=== PATIENT | female | born 2000 | race American Indian/Alaskan Native ===

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

== ENCOUNTER 2020-08-07 04:41 | Emergency (ER) | payer MEDICAID, OTHER ==
[2020-08-07 05:19] VITALS: BP 105/83
[2020-08-07] MEDS ORDERED: SODIUM CHLORIDE 0.9% 1000 ML 1,000 ML IV ONE ×2 (05:29→07:04)
[2020-08-07] MEDS ORDERED: ONDANSETRON 4 MG/2 ML INJ IV ONE (05:29)
[2020-08-07 05:56] LABS: Basophils % (Auto) 0.4 % (0.0-1.8); Eosinophils # (Auto) 0.1 K/mm3 (0.0-0.4); Eosinophils % (Auto) 0.7 % (0.0-4.3); Hematocrit 38.3 % (30.3-42.9); Hemoglobin 12.9 gm/dl (10.1-14.3); Lymphocytes # (Auto) 1.4 K/mm3 (1.2-5.4); Lymphocytes % (Auto) 16.8 % (13.4-35.0); Mean Corpuscular HGB Conc 34 % (30-34); Mean Corpuscular Volume 89 fl (79-97); Monocytes # (Auto) 0.6 K/mm3 (0.0-0.8); Monocytes % (Auto) 7.2 % (0.0-7.3); Platelet Count 275 K/mm3 (140-440); Red Blood Count 4.31 M/mm3 (3.65-5.03)
[2020-08-07 06:13] LABS: Bacteria,Urine 1+ /HPF (Negative); Bilirubin,Urine SM (Negative); Blood,Urine NEG (Negative); Color,Urine Amber (Yellow); Mucus,Urine FEW /HPF; RBC,Urine < 1.0 /HPF (0.0-6.0)
[2020-08-07 06:50] LABS: Alanine Aminotransferase TNR units/L (7-56); BUN/Creatinine Ratio TNR; Blood Urea Nitrogen TNR mg/dL (7-17); Calcium TNR mg/dL (8.4-10.2)
[2020-08-07 06:51] LABS: Albumin TNR g/dL (3.9-5); Hemolysis Index TNR
[2020-08-07] MEDS ORDERED: METOCLOPRAMIDE 10 MG/2 ML INJ IV ONE (07:04)
[2020-08-07 07:22] LABS: Alanine Aminotransferase 12 units/L (7-56); Blood Urea Nitrogen 6 mg/dL (7-17); Calcium 8.7 mg/dL (8.4-10.2); Hemolysis Index 4
--- NOTE | 2020-08-07 07:28 | Emergency Department Report ---
ED Abdominal Pain HPI - General Chief Complaint: Abdominal Pain Stated Complaint: ABD PAIN/EMESIS/SOB Time Seen by Provider: 08/07/20 06:47 Source: patient Mode of arrival: Ambulatory Limitations: No Limitations - History of Present Illness Initial Comments: 20-year-old -[place] female presents to the emergency room for intermittent sharp lower abdominal pain for the last 2 days. Patient admits to nausea vomiting. She has had one loose stool. She reports that she has shortness of breath and just does not feel good. Patient denies any chest pain no dysuria. She has no past medical history currently takes no medications on a daily basis and has no known drug allergies. Patient reports that she is currently on Depo. MD Complaint: abdominal pain Onset/Timin -: days(s) Location: suprapubic Severity scale (0 -10): 7 Quality: aching Consistency: intermittent Improves With: nothing Worsens With: nothing Associated Symptoms: nausea, vomiting, diarrhea (X1). denies: fever, constipa tion, dysuria, hematemesis - Related Data LMP (females 10-50): unknown (On Depo) Home Medications Medication Instructions Recorded Confirmed Last Taken Labetalol 100 mg PO BID 02/08/17 02/08/17 02/07/17 21:00 Previous Rx's Medication Instructions Recorded Last Taken Type Pimecrolimus [Elidel] 1 applic TP BID #30 gm 09/20/14 Unknown Rx Jane Root [Jane] 250 mg PO QID PRN #40 capsule 08/07/20 Unknown Rx Gummies 1 tab PO QDAY #90 08/07/20 Unknown Rx Pyridoxine [Vitamin B-6 50MG TAB] 50 mg PO DAILY #30 tab 08/07/20 Unknown Rx Allergies Allergy/AdvReac Type Severity Reaction Status Date / Time No Known Allergies Allergy Verified 02/08/17 17:02 ED Review of Systems ROS: Stated complaint: ABD PAIN/EMESIS/SOB Other details as noted in HPI Comment: All other systems reviewed and negative ED Past Medical Hx - Past Medical History Previous Medical History?: Yes Hx Hypertension: Yes (PIH) Hx Congestive Heart Failure: No Hx Diabetes: No Hx Deep Vein Thrombosis: No Hx Renal Disease: No Hx Sickle Cell Disease: No Hx Seizures: No Hx Asthma: No Hx COPD: No Hx HIV: No Additional medical history: Eczema - Surgical History Past Surgical History?: No - Social History Smoking Status: Never Smoker Substance Use Type: None - Medications Home Medications: Home Medications Medication Instructions Recorded Confirmed Last Taken Type Pimecrolimus [Elidel] 1 applic TP BID #30 gm 09/20/14 02/08/17 Unknown Rx Labetalol 100 mg PO BID 02/08/17 02/08/17 02/07/17 21:00 History Jane Root [Jane] 250 mg PO QID PRN #40 capsule 08/07/20 Unknown Rx Gummies 1 tab PO QDAY #90 08/07/20 Unknown Rx Pyridoxine [Vitamin B-6 50MG TAB] 50 mg PO DAILY #30 tab 08/07/20 Unknown Rx ED Physical Exam - General Limitations: No Limitations General appearance: alert, in no apparent distress - Head Head exam: Present: atraumatic, normocephalic - Eye Eye exam: Present: normal appearance - ENT ENT exam: Present: normal external ear exam - Neck Neck exam: Present: normal inspection, full ROM - Respiratory Respiratory exam: Absent: accessory muscle use - Cardiovascular Cardiovascular Exam: Present: regular rate - Neurological Exam Neurological exam: Present: alert, oriented X3 - Psychiatric Psychiatric exam: Present: normal affect, normal mood ED Course Vital Signs 08/07/20 05:16 Temperature 98.0 F Pulse Rate 86 Respiratory 16 Rate Blood Pressure 105/83 O2 Sat by Pulse 96 Oximetry ED Medical Decision Making - Lab Data Result diagrams: 08/07/20 05:34 08/07/20 Unknown - Radiology Data Radiology results: [place] [address] Ultrasound Report Signed Patient: YOLANDA EID MR#: [id number] : 2000 Acct:[id number] Age/Sex: 20 / F A DM Date: 08/07/20 Loc: ED Attending Dr: Ordering Physician: YEYO MESSER Date of Service: 08/07/20 Procedure(s): US OB <= 14 weeks fetus Accession Number(s): [id number] cc: YEYO MESSER ULTRASOUND OBSTETRIC INDICATION: Positive with pelvic pain. TECHNIQUE: Transabdominal. COMPARISON: None available. FINDINGS: GESTATIONAL SAC: Well-defined oval shape and intrauterine in location. YOLK SAC: No significant abnormality. EMBRYO/FETUS: No significant abnormality. - [place]-Rump Length = 0.27 cm = 5 weeks, 6 day(s). - Heart Rate = 118 beats per minute. ADNEXA: No significant abnormality. FREE FLUID: None. ADDITIONAL FINDINGS: None. IMPRESSION: 1. Single, living intrauterine with estimated sonographic age of 5 weeks, 6 day(s). Signer Name: Pito Roach MD Signed: 08/07/2020 9:43 AM Workstation Name: [id number] Transcribed By: [place] Dictated By: Pito Roach MD Electronically Authenticated By: Pito Roach MD Signed Date/Time: 08/07/20942 DD/ 1 TD/TT: Print Cancel - Medical Decision Making 20-year-old -[place] female presents to the emergency room for intermittent sharp lower abdominal pain for the last 2 days. Patient admits to nausea vomiting. She has had one loose stool. She reports that she has shortness of breath and just does not feel good. Patient denies any chest pain no dysuria. She has no past medical history currently takes no medications on a daily basis and has no known drug allergies. Patient reports that she is currently on Depo. Urine test came back positive. Will order hCG quantitative as well as an ultrasound less than 14 weeks with transvaginal to rule out ectopic as patient has pelvic pain. Critical care attestation.: If time is entered above; I have spent that time in minutes in the direct care of this critically ill patient, excluding procedure time. ED Disposition Clinical Impression: Positive test Abdominal pain Qualifiers: Abdominal location: lower abdomen, unspecified Qualified Code(s): R10.30 - Lower abdominal pain, unspecified Qualifiers: Weeks of gestation: less than 8 weeks Qualified Code(s): Z3A.01 - Less than 8 weeks gestation of Disposition: -01 TO HOME OR SELFCARE Is pt being admited?: No Does the pt Need Aspirin: No Condition: Stable Instructions: Abdominal Pain (ED) Additional Instructions: Ultrasound shows you are 5 weeks and 1 day . Recommended you follow-up with your WEATHERIZATION FIELD TECHNICIAN. Take your vitamins. Jane root and B6 are for nausea. Increase your fluid intake advance your diet as tolerated. Prescriptions: Jane Root [Jane] 250 mg PO QID PRN #40 capsule PRN Reason: Nausea And Vomiting Gummies 1 tab PO QDAY #90 Pyridoxine [Vitamin B-6 50MG TAB] 50 mg PO DAILY #30 tab Referrals: PRIMARY CARE, [Primary Care Provider] - 3-5 Days [facility] [Provider Group] - 3-5 Days [facility] [Provider Group] - 3-5 Days [facility] [Provider Group] - 3-5 Days Forms: Work/School Release Form(ED)
[2020-08-07 07:33] LABS: HCG Qualitative,Urine Positive (Negative)
[2020-08-07 07:39] LABS: BUN/Creatinine Ratio 10
--- NOTE | 2020-08-07 09:47 | Ultrasound Report ---
ULTRASOUND OBSTETRIC INDICATION: Positive with pelvic pain. TECHNIQUE: Transabdominal. COMPARISON: None available. FINDINGS: GESTATIONAL SAC: Well-defined oval shape and intrauterine in location. YOLK SAC: No significant abnormality. EMBRYO/FETUS: No significant abnormality. - [place]-Rump Length = 0.27 cm = 5 weeks, 6 day(s). - Heart Rate = 118 beats per minute. ADNEXA: No significant abnormality. FREE FLUID: None. ADDITIONAL FINDINGS: None. IMPRESSION: 1. Single, living intrauterine with estimated sonographic age of 5 weeks, 6 day(s). Signer Name: Pito Roach MD Signed: 08/07/2020 9:43 AM Workstation Name: [id number]
== END 2020-08-07 10:35 | disposition home or self-care (01) ==
LOC: ED 04:41
DX: O26.891 Other specified pregnancy related conditions, first trimester (principal); R10.2 Pelvic and perineal pain; I10 Essential (primary) hypertension; Z3A.01 Less than 8 weeks gestation of pregnancy; Z79.899 Other long term (current) drug therapy
CPT/HCPCS: 36415; 76801; 80053; 81001; 81025; 83690; 84702; 85025; 96361; 96374; 96375; 99284; J2405; J2765; J7030

== ENCOUNTER 2020-08-07 22:05 | Emergency (ER) | payer OTHER ==
--- NOTE | 2020-08-08 00:04 | Emergency Department Report ---
ED N/V/D HPI - General Chief complaint: Nausea/Vomiting/Diarrhea Stated complaint: 5WKS ;VOMITING BLOOD Time Seen by Provider: 08/07/20 23:54 Source: patient Mode of arrival: Ambulatory Limitations: No Limitations - History of Present Illness Initial comments: 20-year-old female, , currently 5 weeks , presents to ED with nausea and vomiting, lower abdominal pain. Patient was seen on yesterday for same complaint. Ultrasound was done which showed that patient was with a viable 5-week intrauterine . Patient was given prescriptions for gingerroot and B6 for nausea, which she had filled. Patient states this is not helping with her nausea and vomiting. Patient reports some blood-streaked emesis. MD complaint: nausea, vomiting, abdominal pain -: days(s) (2) Description of Vomiting: blood-streaked Associated Abdominal Pain: Yes (suprapubic) Severity: moderate Quality: cramping Consistency: constant Improves with: none Worsens with: none Associated Symptoms: nausea/vomiting. denies: fever/chills - Related Data Home Medications Medication Instructions Recorded Confirmed Last Taken Labetalol 100 mg PO BID 02/08/17 02/08/17 02/07/17 21:00 Previous Rx's Medication Instructions Recorded Last Taken Type Pimecrolimus [Elidel] 1 applic TP BID #30 gm 09/20/14 Unknown Rx Jane Root [Jane] 250 mg PO QID PRN #40 capsule 08/07/20 Unknown Rx Gummies 1 tab PO QDAY #90 08/07/20 Unknown Rx Pyridoxine [Vitamin B-6 50MG TAB] 50 mg PO DAILY #30 tab 08/07/20 Unknown Rx Promethazine [Phenergan TAB] 25 mg PO Q6HR PRN #20 tab 08/08/20 Unknown Rx Allergies Allergy/AdvReac Type Severity Reaction Status Date / Time No Known Allergies Allergy Verified 02/08/17 17:02 ED Review of Systems ROS: Stated complaint: 5WKS ;VOMITING BLOOD Other details as noted in HPI Comment: All other systems reviewed and negative Constitutional: denies: chills, fever Gastrointestinal: abdominal pain, nausea, vomiting. denies: diarrhea Genitourinary: other (Denies vaginal bleeding) ED Past Medical Hx - Past Medical History Previous Medical History?: Yes Hx Hypertension: Yes (PIH) Hx Congestive Heart Failure: No Hx Diabetes: No Hx Deep Vein Thrombosis: No Hx Renal Disease: No Hx Sickle Cell Disease: No Hx Seizures: No Hx Asthma: No Hx COPD: No Hx HIV: No Additional medical history: Eczema - Surgical History Past Surgical History?: No - Social History Smoking Status: Never Smoker Substance Use Type: None - Medications Home Medications: Home Medications Medication Instructions Recorded Confirmed Last Taken Type Pimecrolimus [Elidel] 1 applic TP BID #30 gm 09/20/14 02/08/17 Unknown Rx Labetalol 100 mg PO BID 02/08/17 02/08/17 02/07/17 21:00 History Jane Root [Jane] 250 mg PO QID PRN #40 capsule 08/07/20 Unknown Rx Gummies 1 tab PO QDAY #90 08/07/20 Unknown Rx Pyridoxine [Vitamin B-6 50MG TAB] 50 mg PO DAILY #30 tab 08/07/20 Unknown Rx Promethazine [Phenergan TAB] 25 mg PO Q6HR PRN #20 tab 08/08/20 Unknown Rx ED Physical Exam - General Limitations: No Limitations General appearance: alert, in no apparent distress - Head Head exam: Present: atraumatic, normocephalic - Eye Eye exam: Present: normal appearance, EOMI - ENT ENT exam: Present: mucous membranes moist - Neck Neck exam: Present: normal inspection - Respiratory Respiratory exam: Present: normal lung sounds bilaterally. Absent: respiratory distress - Cardiovascular Cardiovascular Exam: Present: regular rate, normal rhythm - GI/Abdominal GI/Abdominal exam: Present: soft, tenderness (Mild suprapubic). Absent: distended - Neurological Exam Neurological exam: Present: alert, oriented X3 - Psychiatric Psychiatric exam: Present: normal affect, normal mood - Skin Skin exam: Present: warm, dry, intact, normal color ED Course Vital Signs 08/07/20 08/08/20 23:16 02:52 Temperature 99.0 F 98.8 F Pulse Rate 88 88 Respiratory 18 16 Rate Blood Pressure 107/54 Blood Pressure 112/63 [Right] O2 Sat by Pulse 99 98 Oximetry - Reevaluation(s) Reevaluation #1: 08/08/20 02:31 P.o. challenge completed. ED Medical Decision Making - Lab Data Result diagrams: 08/08/20 00:27 08/08/20 00:27 - Medical Decision Making 20-year-old female, , currently 5 weeks , presents to ED with nausea and vomiting, lower abdominal pain. Patient was seen on yesterday for same complaint. Ultrasound was done which showed that patient was with a viable 5-week intrauterine . Patient returns tonight with same vomiting and abdominal pain. Labs were rechecked and shows some mild hypokalemia. Remainder of labs are unremarkable. Vital signs are normal and stable. Patient given IV fluids, Zofran and potassium replacement. No further emesis here in the ED. P.o. challenge completed. Patient will be discharged with prescription for Phenergan. Outpatient follow-up advised, return precautions given. - Differential Diagnosis Nausea vomiting in , electrolyte abnormality, dehydration Critical care attestation.: If time is entered above; I have spent that time in minutes in the direct care of this critically ill patient, excluding procedure time. ED Disposition Clinical Impression: Nausea and vomiting in , Hypokalemia Disposition: TO HOME OR SELFCARE Is pt being admited?: No Condition: Stable Instructions: Hypokalemia, Morning Sickness, [id number] Prescriptions: Promethazine [Phenergan TAB] 25 mg PO Q6HR PRN #20 tab PRN Reason: Nausea Referrals: [facility] MD ANGELA [Primary Care Provider] - 3-5 Days TREVA CABELLO MD [Staff Physician] - 3-5 Days Time of Disposition: 02:32
[2020-08-08] MEDS ORDERED: SODIUM CHLORIDE 0.9% 1000 ML 1,000 ML IV ONE (00:06)
[2020-08-08] MEDS ORDERED: ONDANSETRON 4 MG/2 ML INJ IV ONE (00:06)
[2020-08-08 00:43] LABS: Basophils % (Auto) 0.3 % (0.0-1.8); Eosinophils % (Auto) 0.1 % (0.0-4.3); Hematocrit 34.9 % (30.3-42.9); Hemoglobin 11.7 gm/dl (10.1-14.3); Lymphocytes # (Auto) 1.1 K/mm3 (1.2-5.4); Lymphocytes % (Auto) 11.2 % (13.4-35.0); Mean Corpuscular HGB Conc 34 % (30-34); Mean Corpuscular Volume 89 fl (79-97); Monocytes # (Auto) 0.6 K/mm3 (0.0-0.8); Monocytes % (Auto) 6.3 % (0.0-7.3); Platelet Count 246 K/mm3 (140-440); Red Blood Count 3.91 M/mm3 (3.65-5.03); Red Cell Distribution Width 13.8 % (13.2-15.2)
[2020-08-08 01:02] LABS: Blood Urea Nitrogen 6 mg/dL (7-17); Calcium 8.6 mg/dL (8.4-10.2); Hemolysis Index 3
[2020-08-08 01:03] LABS: BUN/Creatinine Ratio 10
[2020-08-08] MEDS ORDERED: POTASSIUM CHLORIDE ER 20 MEQ TAB PO ONE (01:49)
[2020-08-08 02:56] VITALS: BP 112/63
== END 2020-08-08 02:52 | disposition home or self-care (01) ==
LOC: ED 22:05
DX: O21.8 Other vomiting complicating pregnancy (principal); O26.891 Other specified pregnancy related conditions, first trimester; E87.6 Hypokalemia; I10 Essential (primary) hypertension; Z3A.01 Less than 8 weeks gestation of pregnancy; Z79.899 Other long term (current) drug therapy
CPT/HCPCS: 36415; 80048; 85025; 96361; 96374; 99283; J2405; J7030; 76801; 80053; 81001; 81025; 83690; 84702; 96375; J2765

== ENCOUNTER 2020-08-31 16:21 | Observation (INO) | payer OTHER ==
[2020-08-31 20:11] LABS: Alanine Aminotransferase 25 units/L (7-56); Albumin 4.3 g/dL (3.9-5); Blood Urea Nitrogen 6 mg/dL (7-17); Calcium 9.6 mg/dL (8.4-10.2); Hemolysis Index 0
[2020-08-31] MEDS: ONDANSETRON 4 MG/2 ML INJ IV PRN (20:15)
[2020-08-31] MEDS: LACTATED RINGERS 1,000 ML IV SCH (20:16)
[2020-08-31 20:18] LABS: Basophils % (Auto) 0.2 % (0.0-1.8); Eosinophils % (Auto) 0.5 % (0.0-4.3); Hematocrit 35.9 % (30.3-42.9); Hemoglobin 12.2 gm/dl (10.1-14.3); Lymphocytes # (Auto) 1.8 K/mm3 (1.2-5.4); Lymphocytes % (Auto) 25.3 % (13.4-35.0); Mean Corpuscular HGB Conc 34 % (30-34); Mean Corpuscular Volume 88 fl (79-97); Monocytes # (Auto) 0.6 K/mm3 (0.0-0.8); Monocytes % (Auto) 8.2 % (0.0-7.3); Platelet Count 303 K/mm3 (140-440); Red Blood Count 4.06 M/mm3 (3.65-5.03); Red Cell Distribution Width 13.1 % (13.2-15.2)
[2020-08-31 20:30] LABS: BUN/Creatinine Ratio 12
--- NOTE | 2020-08-31 22:24 | Ultrasound Report ---
ULTRASOUND OBSTETRIC INDICATION / CLINICAL INFORMATION: gestational age; hyperemesis grav. Clinical Gestational Age (GA): 9.5 weeks.days TECHNIQUE: Transabdominal. COMPARISON: 08/07/2020 FINDINGS: GESTATIONAL SAC: Well-defined oval shape and intrauterine in location. YOLK SAC: No significant abnormality. EMBRYO/FETUS: No significant abnormality. - [place]-Rump Length = 2.0 cm = 8.4 weeks.days - Heart Rate, beats per minute (if present) = 174 ADNEXA: Ovaryies are not well visualized No significant abnormality. FREE FLUID: None. ADDITIONAL FINDINGS: Small subchorionic hematoma appears smaller when compared to the prior examinati on. IMPRESSION: 1. Single, living intrauterine with estimated sonographic age of 8.4 weeks.days. Signer Name: Sherif Cao MD Signed: 08/31/2020 10:19 PM Workstation Name: [id number]
--- NOTE | 2020-08-31 22:26 | History and Physical Report ---
History of Present Illness Date of examination: 08/31/20 Date of admission: 08/31/20 17:20 Chief complaint: sent from clinic for hyperemesis History of present illness: at 8wks 5days by LMP c/w first trimester u/s at 5.6wks done on 08/07/20. care at [facility]. pt seen by REJI Villegas and sent to the hospital for admission. Covering physician Dr. Lopez states he was unaware. Dr. Garza was not called. Pt gave history of having nausea and vomiting and spitting up blood x3wks. pt denies pelvic pain or vaginal bleeding. pt states she can only eat turkey sandwich. Denies fever or chills. Past History Past Medical History: no pertinent history, other Past Surgical History: no surgical history Family/Genetic History: none Social history: no significant social history - Obstetrical History Expected Date of Delivery: 04/07/21 Actual Gestation: 8 Week(s) 5 Day(s) : 2 Hx # Term Pregnancies: 1 Number of Living Children: 1 Medications and Allergies Allergies Allergy/AdvReac Type Severity Reaction Status Date / Time No Known Allergies Allergy Verified 02/08/17 17:02 Home Medications Medication Instructions Recorded Confirmed Last Taken Type Pimecrolimus [Elidel] 1 applic TP BID #30 gm 09/20/14 02/08/17 Unknown Rx Labetalol 100 mg PO BID 02/08/17 02/08/17 02/07/17 21:00 History Jane Root [Jane] 250 mg PO QID PRN #40 capsule 08/07/20 Unknown Rx Gummies 1 tab PO QDAY #90 08/07/20 Unknown Rx Pyridoxine [Vitamin B-6 50MG TAB] 50 mg PO DAILY #30 tab 08/07/20 Unknown Rx Promethazine [Phenergan TAB] 25 mg PO Q6HR PRN #20 tab 08/08/20 Unknown Rx Active Meds: Active Medications Lactated Ringer's (Lactated Ringers) 1,000 mls @ 125 mls/hr IV DIRECT JAYCE Last Admin: 08/31/20 20:16 Dose: 125 mls/hr Documented by: Ondansetron HCl (Ondansetron 4 Mg/2 Ml Inj) 4 mg IV Q4H PRN PRN Reason: Nausea And Vomiting Last Admin: 08/31/20 20:15 Dose: 4 mg Documented by: Review of Systems All systems: negative (persistent nausea, vomiting and spitting up blood) - Vital Signs Vital signs: Vital Signs Temp Pulse Resp BP Pulse Ox 98.3 F 72 18 120/61 100 08/31/20 17:45 08/31/20 17:45 08/31/20 17:45 08/31/20 17:45 08/31/20 17:45 Temp Pulse Resp BP Pulse Ox 98.3 F 72 18 120/61 100 08/31/20 17:45 08/31/20 17:45 08/31/20 17:45 08/31/20 17:45 08/31/20 17:45 - Physical Exam Breasts: Positive: deferred Cardiovascular: Regular rate Lungs: Positive: Normal air movement Abdomen: Positive: normal appearance, soft Genitourinary (Female): Positive: other (deferred) Uterus: Positive: normal size Extremities: Positive: normal Results Result Diagrams: 08/31/20 19:15 08/31/20 19:15 Abnormal lab results 08/31/20 08/31/20 Range/Units 19:15 19:15 RDW 13.1 L (13.2-15.2) % [place] % (Auto) 8.2 H (0.0-7.3) % Sodium 136 L (137-145) mmol/L Chloride 97.6 L (98-107) mmol/L BUN 6 L (7-17) mg/dL Creatinine 0.5 L (0.6-1.2) mg/dL Glucose 59 L (65-100) mg/dL All other labs normal. Assessment and Plan Hyperemesis gravidarum with normal electrolytes, dehydration without voiding for the past 5hrs 1. Admit to antepartum/mother baby floor 2. Give IV hydration and IV zofran and add multivitamins daily in the am 3. U/S for viability and dates 4. Consult [facility] in the morning if pt vomiting not relieved 5. Obtain records from clinic and labs HIV, RPR, hepBsAg, type and screen done 6. Emotional support given All questions encouraged and answered
[2020-08-31] MEDS: PANTOPRAZOLE 40 MG INJ IV SCH (23:34)
[2020-08-31] MEDS ORDERED: THIAMINE 100 MG, FOLIC ACID 1 MG, MULTIPLE VITAMIN INJ, ADULT 10 ML in SODIUM CHLORIDE ... IV ONE (23:45)
[2020-09-01 00:53] LABS: Bilirubin,Urine NEG (Negative); Blood,Urine NEG (Negative); Color,Urine Yellow (Yellow); Mucus,Urine 3+ /HPF
[2020-09-01 00:57] LABS: Amphetamine Screen,Urine PRESUMPTIVE NEGATIVE; Benzodiazepines Screen,Urine PRESUMPTIVE NEGATIVE; Cannabinoid Screen,Urine PRESUMPTIVE POSITIVE; Cocaine Screen,Urine PRESUMPTIVE NEGATIVE; Methadone Screen,Urine PRESUMPTIVE NEGATIVE; Opiate Screen,Urine PRESUMPTIVE NEGATIVE
[2020-09-01] MEDS: LACTATED RINGERS 1,000 ML IV SCH ×2 (06:49→23:05)
[2020-09-01] MEDS: ONDANSETRON 4 MG/2 ML INJ IV PRN ×2 (11:45→17:04)
[2020-09-01] MEDS: PANTOPRAZOLE 40 MG INJ IV SCH (11:48)
[2020-09-01 18:04] LABS: Bilirubin,Urine NEG (Negative); Blood,Urine NEG (Negative); Color,Urine Straw (Yellow); Protein,Urine <15 mg/dL mg/dL (Negative); RBC,Urine < 1.0 /HPF (0.0-6.0); Urobilinogen,Urine < 2.0 mg/dL (<2.0)
--- NOTE | 2020-09-01 18:45 | Progress Note ---
Assessment and Plan - Patient Problems (1) Hyperemesis gravidarum Current Visit: Yes Status: Acute Plan to address problem: Improved on IV zofran. Now tolerating clear liquids and chicken noodle soup. --Advance diet --Discharge pending improvement of N/V Subjective - Subjective Date of service: 09/01/20 Principal diagnosis: hyperemesis Interval history: Patient reports that the N/V has significantly improved over today. Reports tolerating clear liquids and chicken noodle soup. Wants to attempt to eat real meal prior to possibly going home. Otherwise well. Objective - Vital Signs Vital Signs: Vital Signs - 12hr 09/01/20 09/01/20 08:00 16:53 Temperature 98.7 F 98.0 F Pulse Rate 76 82 Respiratory 18 18 Rate Blood Pressure 102/41 97/64 [Right] O2 Sat by Pulse 100 99 Oximetry - Exam Abdomen: Present: normal appearance, normal bowel sounds - Labs Labs: Abnormal Labs 08/31/20 08/31/20 09/01/20 19:15 19:15 00:17 RDW 13.1 L Bent % (Auto) 8.2 H Sodium 136 L Chloride 97.6 L BUN 6 L Creatinine 0.5 L Glucose 59 L Urine pH 8.0 H 09/01/20 17:26 RDW Bent % (Auto) Sodium Chloride BUN Creatinine Glucose Urine pH 9.0 H Laboratory Results - last 24 hr 08/31/20 08/31/20 08/31/20 19:15 19:15 19:15 WBC 7.2 RBC 4.06 Hgb 12.2 Hct 35.9 MCV 88 MCH 30 MCHC 34 RDW 13.1 L Plt Count 303 Lymph % (Auto) 25.3 Bent % (Auto) 8.2 H Eos % (Auto) 0.5 Baso % (Auto) 0.2 Lymph # (Auto) 1.8 Bent # (Auto) 0.6 Eos # (Auto) 0.0 Baso # (Auto) 0.0 Seg Neutrophils % 65.8 Seg Neutrophils # 4.7 Sodium 136 L Potassium 3.8 Chloride 97.6 L Carbon Dioxide 27 Anion Gap 15 BUN 6 L Creatinine 0.5 L Estimated GFR > 60 BUN/Creatinine Ratio 12 Glucose 59 L Hemoglobin A1c Calcium 9.6 Total Bilirubin < 0.20 AST 19 ALT 25 Alkaline Phosphatase 79 Total Protein 7.7 Albumin 4.3 Albumin/Globulin Ratio 1.3 Amylase 101 Lipase 13 Urine Color Urine Turbidity Urine pH Ur Specific [place] Urine Protein Urine Glucose (UA) Urine Ketones Urine Blood Urine Nitrite Urine Bilirubin Urine Urobilinogen Ur Leukocyte Esterase Urine WBC (Auto) Urine RBC (Auto) U Epithel Cells (Auto) Urine Mucus Urine Opiates Screen Urine Methadone Screen Ur Barbiturates Screen Ur Phencyclidine Scrn Ur Amphetamines Screen U Benzodiazepines Scrn Urine Cocaine Screen U Marijuana (THC) Screen Drugs of Abuse Note Coronavirus (PCR) Hep Bs Antigen HIV 1&2 Antibody Rapid HIV P24 Antigen Rubella IgG Antibody Blood Type 08/31/20 08/31/20 08/31/20 19:15 19:15 19:15 WBC RBC Hgb Hct MCV MCH MCHC RDW Plt Count Lymph % (Auto) Bent % (Auto) Eos % (Auto) Baso % (Auto) Lymph # (Auto) Bent # (Auto) Eos # (Auto) Baso # (Auto) Seg Neutrophils % Seg Neutrophils # Sodium Potassium Chloride Carbon Dioxide Anion Gap BUN Creatinine Estimated GFR BUN/Creatinine Ratio Glucose Hemoglobin A1c 5.5 Calcium Total Bilirubin AST ALT Alkaline Phosphatase Total Protein Albumin Albumin/Globulin Ratio Amylase Lipase Urine Color Urine Turbidity Urine pH Ur Specific [place] Urine Protein Urine Glucose (UA) Urine Ketones Urine Blood Urine Nitrite Urine Bilirubin Urine Urobilinogen Ur Leukocyte Esterase Urine WBC (Auto) Urine RBC (Auto) U Epithel Cells (Auto) Urine Mucus Urine Opiates Screen Urine Methadone Screen Ur Barbiturates Screen Ur Phencyclidine Scrn Ur Amphetamines Screen U Benzodiazepines Scrn Urine Cocaine Screen U Marijuana (THC) Screen Drugs of Abuse Note Coronavirus (PCR) Hep Bs Antigen HIV 1&2 Antibody Rapid HIV P24 Antigen Rubella IgG Antibody Immune Blood Type B POSITIVE 08/31/20 08/31/20 09/01/20 19:15 19:15 00:17 WBC RBC Hgb Hct MCV MCH MCHC RDW Plt Count Lymph % (Auto) Bent % (Auto) Eos % (Auto) Baso % (Auto) Lymph # (Auto) Bent # (Auto) Eos # (Auto) Baso # (Auto) Seg Neutrophils % Seg Neutrophils # Sodium Potassium Chloride Carbon Dioxide Anion Gap BUN Creatinine Estimated GFR BUN/Creatinine Ratio Glucose Hemoglobin A1c Calcium Total Bilirubin AST ALT Alkaline Phosphatase Total Protein Albumin Albumin/Globulin Ratio Amylase Lipase Urine Color Yellow Urine Turbidity Cloudy Urine pH 8.0 H Ur Specific [place] 1.024 Urine Protein 30 mg/dl Urine Glucose (UA) Neg Urine Ketones 80 Urine Blood Neg Urine Nitrite Neg Urine Bilirubin Neg Urine Urobilinogen 4.0 Ur Leukocyte Esterase Neg Urine WBC (Auto) 0.0 Urine RBC (Auto) 17.0 U Epithel Cells (Auto) 6.0 Urine Mucus 3+ Urine Opiates Screen Urine Methadone Screen Ur Barbiturates Screen Ur Phencyclidine Scrn Ur Amphetamines Screen U Benzodiazepines Scrn Urine Cocaine Screen U Marijuana (THC) Screen Drugs of Abuse Note Coronavirus (PCR) Hep Bs Antigen Non-reactive HIV 1&2 Antibody Rapid Non react HIV P24 Antigen Non react Rubella IgG Antibody Blood Type 09/01/20 09/01/20 09/01/20 00:17 17:26 Unknown WBC RBC Hgb Hct MCV MCH MCHC RDW Plt Count Lymph % (Auto) Bent % (Auto) Eos % (Auto) Baso % (Auto) Lymph # (Auto) Bent # (Auto) Eos # (Auto) Baso # (Auto) Seg Neutrophils % Seg Neutrophils # Sodium Potassium Chloride Carbon Dioxide Anion Gap BUN Creatinine Estimated GFR BUN/Creatinine Ratio Glucose Hemoglobin A1c Calcium Total Bilirubin AST ALT Alkaline Phosphatase Total Protein Albumin Albumin/Globulin Ratio Amylase Lipase Urine Color Straw Urine Turbidity Clear Urine pH 9.0 H Ur Specific [place] 1.005 Urine Protein <15 mg/dl Urine Glucose (UA) Neg Urine Ketones Neg Urine Blood Neg Urine Nitrite Neg Urine Bilirubin Neg Urine Urobilinogen < 2.0 Ur Leukocyte Esterase Tr Urine WBC (Auto) 1.0 Urine RBC (Auto) < 1.0 U Epithel Cells (Auto) 1.0 Urine Mucus Urine Opiates Screen Presumptive negative Urine Methadone Screen Presumptive negative Ur Barbiturates Screen Presumptive negative Ur Phencyclidine Scrn Presumptive negative Ur Amphetamines Screen Presumptive negative U Benzodiazepines Scrn Presumptive negative Urine Cocaine Screen Presumptive negative U Marijuana (THC) Screen Presumptive positive Drugs of Abuse Note Disclamer Coronavirus (PCR) Negative Hep Bs Antigen HIV 1&2 Antibody Rapid HIV P24 Antigen Rubella IgG Antibody Blood Type
[2020-09-01] MEDS ORDERED: CLOTRIMAZOLE 1% VAG CREAM 45 GM VG SCH (22:00)
[2020-09-02] MEDS: LACTATED RINGERS 1,000 ML IV SCH (05:53)
[2020-09-02] MEDS ORDERED: ONDANSETRON 4 MG ODT TAB PO PRN (10:00)
[2020-09-02] MEDS ORDERED: PYRIDOXINE 50 MG TAB PO SCH (10:00)
[2020-09-02] MEDS: PANTOPRAZOLE 40 MG INJ IV SCH (10:37)
--- NOTE | 2020-09-02 16:14 | Progress Note ---
Assessment and Plan - Patient Problems (1) Hyperemesis gravidarum Current Visit: Yes Status: Acute Plan to address problem: PT can be sent home today. Will send hoem with Zofran and Vit B6. HEG precautions d/w pt. RTO 1 week. Subjective - Subjective Date of service: 09/02/20 Principal diagnosis: hyperemesis Interval history: PT doing much better today. PT got IV zofran overnight and today tolerated PO Zofran and Vit B6 and was able to tolerated some po today. No emesis today. PT would like to go home. Objective - Vital Signs Vital Signs: Vital Signs - 12hr 09/02/20 09/02/20 07:53 12:19 Temperature 98.6 F 98.6 F Pulse Rate 76 76 Respiratory 18 18 Rate Blood Pressure 99/51 114/54 O2 Sat by Pulse 98 100 Oximetry - Labs Labs: Abnormal Labs 08/31/20 08/31/20 09/01/20 19:15 19:15 00:17 RDW 13.1 L [place] % (Auto) 8.2 H Sodium 136 L Chloride 97.6 L BUN 6 L Creatinine 0.5 L Glucose 59 L Urine pH 8.0 H 09/01/20 17:26 RDW [place] % (Auto) Sodium Chloride BUN Creatinine Glucose Urine pH 9.0 H Laboratory Results - last 24 hr 09/01/20 17:26 Urine Color Straw Urine Turbidity Clear Urine pH 9.0 H Ur Specific [place] 1.005 Urine Protein <15 mg/dl Urine Glucose (UA) Neg Urine Ketones Neg Urine Blood Neg Urine Nitrite Neg Urine Bilirubin Neg Urine Urobilinogen < 2.0 Ur Leukocyte Esterase Tr Urine WBC (Auto) 1.0 Urine RBC (Auto) < 1.0 U Epithel Cells (Auto) 1.0
--- NOTE | 2020-09-02 16:17 | Short Stay Summary ---
Short Stay Documentation Date of service: 09/02/20 Narrative H&P: see Progress notes. PT admitted for HEG. PT stabilized with Zofran PO and Vit B6 and she was sent home with those meds. RTO 1 week - History Social history: no significant social history - Allergies and Medications Current Medications: Allergies No Known Allergies Allergy (Verified 02/08/17 17:02) Home Medications Medication Instructions Recorded Confirmed Last Taken Type Pimecrolimus [Elidel] 1 applic TP BID #30 gm 09/20/14 02/08/17 Unknown Rx Labetalol 100 mg PO BID 02/08/17 02/08/17 02/07/17 21:00 History Jane Root [Jaen] 250 mg PO QID PRN #40 capsule 08/07/20 Unknown Rx Gummies 1 tab PO QDAY #90 08/07/20 Unknown Rx Pyridoxine [Vitamin B-6 50MG TAB] 50 mg PO DAILY #30 tab 08/07/20 Unknown Rx Promethazine [Phenergan TAB] 25 mg PO Q6HR PRN #20 tab 08/08/20 Unknown Rx Ondansetron [Zofran ODT TAB] 4 mg PO Q6H PRN #30 tab.rapdis 09/02/20 Unknown Rx Pyridoxine [Vitamin B-6 50MG TAB] 25 mg PO Q6H PRN #90 tablet 09/02/20 Unknown Rx Active Medications Clotrimazole (Clotrimazole 1% Vag Cream 45 Gm) 1 applic VG QHS [facility] Stop: 09/07/20 22:01 Last Admin: 09/02/20 00:21 Dose: 1 applic Documented by: Lactated Ringer's (Lactated Ringers) 1,000 mls @ 125 mls/hr IV DIRECT [facility] Last Admin: 09/02/20 05:53 Dose: 125 mls/hr Documented by: Ondansetron HCl (Ondansetron 4 Mg Odt Tab) 4 mg PO Q6H PRN PRN Reason: Nausea And Vomiting Pantoprazole Sodium (Pantoprazole 40 Mg Inj) 40 mg IV QDAY [facility] Last Admin: 09/02/20 10:37 Dose: 40 mg Documented by: Pyridoxine HCl (Pyridoxine 50 Mg Tab) 25 mg PO Q6H [facility] Last Admin: 09/02/20 10:38 Dose: 25 mg Documented by: - Physical exam Breasts: deferred - Discharge Diagnoses (1) Hyperemesis gravidarum Status: Acute Short Stay Discharge Plan Follow up with: ELOISE SILVA MD [Primary Care Provider] - 7 Days Prescriptions: Pyridoxine [Vitamin B-6 50MG TAB] 25 mg PO Q6H PRN #90 tablet PRN Reason: Nausea And Vomiting Ondansetron [Zofran ODT TAB] 4 mg PO Q6H PRN #30 tab.rapdis PRN Reason: Nausea And Vomiting
[2020-09-02 18:54] VITALS: BP 115/49
== END 2020-09-02 18:55 | disposition home or self-care (01) ==
LOC: UNDOADMOB 16:21 → INTOOBSV 16:21 → 3A 16:21 → OB 17:20
PROVIDERS: ADMIT Obstetrics & Gynecology; ATTEND Obstetrics & Gynecology
DX: O21.0 Mild hyperemesis gravidarum (principal); Z20.822 Contact with and (suspected) exposure to COVID-19; Z3A.01 Less than 8 weeks gestation of pregnancy; Z79.899 Other long term (current) drug therapy
CPT/HCPCS: 36415; 76801; 80053; 80307; 81001; 82150; 83036; 83690; 85025; 86706; 86762; 86900; 86901; 87806; 96365; 96366; 96375; 96376; C9113; G0378; G0379; J2405; J3411; J7030; J7120; U0003

== ENCOUNTER 2020-09-11 10:38 | Emergency (ER) | payer OTHER ==
[2020-09-11 11:14] VITALS: BP 118/63
[2020-09-11] MEDS ORDERED: METOCLOPRAMIDE 10 MG TAB PO ONE (11:47)
[2020-09-11] MEDS ORDERED: diphenhydrAMINE 25 MG CAP PO ONE (11:47)
[2020-09-11 12:21] LABS: Basophils % (Auto) 0.5 % (0.0-1.8); Eosinophils # (Auto) 0.1 K/mm3 (0.0-0.4); Eosinophils % (Auto) 0.7 % (0.0-4.3); Hematocrit 36.3 % (30.3-42.9); Hemoglobin 12.3 gm/dl (10.1-14.3); Lymphocytes # (Auto) 1.5 K/mm3 (1.2-5.4); Lymphocytes % (Auto) 21.3 % (13.4-35.0); Mean Corpuscular HGB Conc 34 % (30-34); Mean Corpuscular Volume 88 fl (79-97); Monocytes # (Auto) 0.5 K/mm3 (0.0-0.8); Monocytes % (Auto) 7.3 % (0.0-7.3); Platelet Count 319 K/mm3 (140-440); Red Blood Count 4.12 M/mm3 (3.65-5.03); Red Cell Distribution Width 13.3 % (13.2-15.2)
--- NOTE | 2020-09-11 12:45 | Emergency Department Report ---
ED General Adult HPI - General Chief complaint: Nausea/Vomiting/Diarrhea Stated complaint: VOMITING Time Seen by Provider: 09/11/20 11:23 Source: patient Mode of arrival: Ambulatory Limitations: No Limitations - History of Present Illness Initial comments: Patient is a 20-year-old female presents emergency room complaints of nausea and vomiting that has been throughout her . She states that it has worsened in the last 3 days. She states that the vomiting has been frequent. She states that she is taking Zofran prescribed by her TRANSPORTATION DRIVER with mild relief. She is able to keep down calos jazzy but states that she cannot keep down food. She states that she is approximately 11 weeks . She states her last menstrual cycle was in June. She denies any fever, diarrhea, abdominal pain, pelvic pain, vaginal bleeding, urinary symptoms, abnormal vaginal discharge. She states that her [facility]ATION DR[facility]. No past medical history. No allergies to medications. /P: 1/A: 0 - Related Data Home Medications Medication Instructions Recorded Confirmed Last Taken Labetalol 100 mg PO BID 02/08/17 02/08/17 02/07/17 21:00 Previous Rx's Medication Instructions Recorded Last Taken Type Pimecrolimus [Elidel] 1 applic TP BID #30 gm 09/20/14 Unknown Rx Gummies 1 tab PO QDAY #90 08/07/20 Unknown Rx Pyridoxine [Vitamin B-6 50MG TAB] 50 mg PO DAILY #30 tab 08/07/20 Unknown Rx Promethazine [Phenergan TAB] 25 mg PO Q6HR PRN #20 tab 08/08/20 Unknown Rx Ondansetron [Zofran ODT TAB] 4 mg PO Q6H PRN #30 tab.rapdis 09/02/20 Unknown Rx Pyridoxine [Vitamin B-6 50MG TAB] 25 mg PO Q6H PRN #90 tablet 09/02/20 Unknown Rx Calos Root [Calos] 250 mg PO QID PRN #40 capsule 09/11/20 Unknown Rx Metoclopramide [Reglan] 10 mg PO Q8HR PRN #20 tab 09/11/20 Unknown Rx diphenhydrAMINE [Benadryl CAP] 25 mg PO Q6HR PRN #20 capsule 09/11/20 Unknown Rx Allergies Allergy/AdvReac Type Severity Reaction Status Date / Time No Known Allergies Allergy Verified 02/08/17 17:02 ED Review of Systems ROS: Stated complaint: VOMITING Other details as noted in HPI Comment: All other systems reviewed and negative ED Past Medical Hx - Past Medical History Previous Medical History?: Yes Hx Hypertension: Yes (PIH) Hx Congestive Heart Failure: No Hx Diabetes: No Hx Deep Vein Thrombosis: No Hx Renal Disease: No Hx Sickle Cell Disease: No Hx Seizures: No Hx Asthma: No Hx COPD: No Hx HIV: No Additional medical history: Eczema - Surgical History Past Surgical History?: No - Social History Smoking Status: Never Smoker - Medications Home Medications: Home Medications Medication Instructions Recorded Confirmed Last Taken Type Pimecrolimus [Elidel] 1 applic TP BID #30 gm 09/20/14 02/08/17 Unknown Rx Labetalol 100 mg PO BID 02/08/17 02/08/17 02/07/17 21:00 History Gummies 1 tab PO QDAY #90 08/07/20 Unknown Rx Pyridoxine [Vitamin B-6 50MG TAB] 50 mg PO DAILY #30 tab 08/07/20 Unknown Rx Promethazine [Phenergan TAB] 25 mg PO Q6HR PRN #20 tab 08/08/20 Unknown Rx Ondansetron [Zofran ODT TAB] 4 mg PO Q6H PRN #30 tab.rapdis 09/02/20 Unknown Rx Pyridoxine [Vitamin B-6 50MG TAB] 25 mg PO Q6H PRN #90 tablet 09/02/20 Unknown Rx Calos Root [Calos] 250 mg PO QID PRN #40 capsule 09/11/20 Unknown Rx Metoclopramide [Reglan] 10 mg PO Q8HR PRN #20 tab 09/11/20 Unknown Rx diphenhydrAMINE [Benadryl CAP] 25 mg PO Q6HR PRN #20 capsule 09/11/20 Unknown Rx ED Physical Exam - General Limitations: No Limitations General appearance: alert, in no apparent distress - Head Head exam: Present: atraumatic, normocephalic - Eye Eye exam: Present: normal appearance - ENT ENT exam: Present: mucous membranes moist - Respiratory Respiratory exam: Present: normal lung sounds bilaterally. Absent: respiratory distress, wheezes, rales, rhonchi, stridor, chest wall tenderness, accessory muscle use, decreased breath sounds, prolonged expiratory - Cardiovascular Cardiovascular Exam: Present: regular rate, normal rhythm, normal heart sounds. Absent: systolic murmur, diastolic murmur, rubs, gallop - GI/Abdominal GI/Abdominal exam: Present: soft, normal bowel sounds. Absent: distended, tenderness, guarding, rebound, rigid - Neurological Exam Neurological exam: Present: alert, oriented X3 - Psychiatric Psychiatric exam: Present: normal affect, normal mood - Skin Skin exam: Present: warm, dry, intact ED Course Vital Signs 09/11/20 11:12 Temperature 98.8 F Pulse Rate 90 Respiratory 18 Rate Blood Pressure 118/63 [Right] O2 Sat by Pulse 98 Oximetry ED Medical Decision Making - Lab Data Result diagrams: 09/11/20 11:53 09/11/20 11:53 Lab Results 09/11/20 09/11/20 09/11/20 Range/Units 11:53 11:53 11:53 WBC 7.2 (4.5-11.0) K/mm3 RBC 4.12 (3.65-5.03) M/mm3 Hgb 12.3 (10.1-14.3) gm/dl Hct 36.3 (30.3-42.9) % MCV 88 (79-97) fl MCH 30 (28-32) pg MCHC 34 (30-34) % RDW 13.3 (13.2-15.2) % Plt Count 319 (140-440) K/mm3 Lymph % (Auto) 21.3 (13.4-35.0) % [place] % (Auto) 7.3 (0.0-7.3) % Eos % (Auto) 0.7 (0.0-4.3) % Baso % (Auto) 0.5 (0.0-1.8) % Lymph # (Auto) 1.5 (1.2-5.4) K/mm3 [place] # (Auto) 0.5 (0.0-0.8) K/mm3 Eos # (Auto) 0.1 (0.0-0.4) K/mm3 Baso # (Auto) 0.0 (0.0-0.1) K/mm3 Seg Neutrophils % 70.2 H (40.0-70.0) % Seg Neutrophils # 5.1 (1.8-7.7) K/mm3 Sodium 135 L (137-145) mmol/L Potassium 3.7 (3.6-5.0) mmol/L Chloride 97.4 L (98-107) mmol/L Carbon Dioxide 25 (22-30) mmol/L Anion Gap 16 mmol/L BUN 7 (7-17) mg/dL Creatinine 0.6 (0.6-1.2) mg/dL Estimated GFR > 60 ml/min BUN/Creatinine Ratio 12 % Glucose 89 (65-100) mg/dL Calcium 9.7 (8.4-10.2) mg/dL Total Bilirubin 0.20 (0.1-1.2) mg/dL AST 19 (5-40) units/L ALT 14 (7-56) units/L Alkaline Phosphatase 78 (35-129) units/L Total Protein 8.6 H (6.3-8.2) g/dL Albumin 4.2 (3.9-5) g/dL Albumin/Globulin Ratio 1.0 % HCG, Quant 49303 H (0-4) mIU/mL Urine Color (Yellow) Urine Turbidity (Clear) Urine pH (5.0-7.0) Ur Specific [place] (1.003-1.030) Urine Protein (Negative) mg/dL Urine Glucose (UA) (Negative) mg/dL Urine Ketones (Negative) mg/dL Urine Blood (Negative) Urine Nitrite (Negative) Urine Bilirubin (Negative) Urine Ictotest (Negative) Urine Urobilinogen (<2.0) mg/dL Ur Leukocyte Esterase (Negative) Urine WBC (Auto) (0.0-6.0) /HPF Urine RBC (Auto) (0.0-6.0) /HPF U Epithel Cells (Auto) (0-13.0) /HPF Urine Mucus /HPF 09/11/20 Range/Units 12:31 WBC (4.5-11.0) K/mm3 RBC (3.65-5.03) M/mm3 Hgb (10.1-14.3) gm/dl Hct (30.3-42.9) % MCV (79-97) fl MCH (28-32) pg MCHC (30-34) % RDW (13.2-15.2) % Plt Count (140-440) K/mm3 Lymph % (Auto) (13.4-35.0) % [place] % (Auto) (0.0-7.3) % Eos % (Auto) (0.0-4.3) % Baso % (Auto) (0.0-1.8) % Lymph # (Auto) (1.2-5.4) K/mm3 [place] # (Auto) (0.0-0.8) K/mm3 Eos # (Auto) (0.0-0.4) K/mm3 Baso # (Auto) (0.0-0.1) K/mm3 Seg Neutrophils % (40.0-70.0) % Seg Neutrophils # (1.8-7.7) K/mm3 Sodium (137-145) mmol/L Potassium (3.6-5.0) mmol/L Chloride (98-107) mmol/L Carbon Dioxide (22-30) mmol/L Anion Gap mmol/L BUN (7-17) mg/dL Creatinine (0.6-1.2) mg/dL Estimated GFR ml/min BUN/Creatinine Ratio % Glucose (65-100) mg/dL Calcium (8.4-10.2) mg/dL Total Bilirubin (0.1-1.2) mg/dL AST (5-40) units/L ALT (7-56) units/L Alkaline Phosphatase (35-129) units/L Total Protein (6.3-8.2) g/dL Albumin (3.9-5) g/dL Albumin/Globulin Ratio % HCG, Quant (0-4) mIU/mL Urine Color [place] (Yellow) Urine Turbidity Cloudy (Clear) Urine pH 5.0 (5.0-7.0) Ur Specific [place] 1.036 H (1.003-1.030) Urine Protein 100 mg/dl (Negative) mg/dL Urine Glucose (UA) Neg (Negative) mg/dL Urine Ketones Tr (Negative) mg/dL Urine Blood Neg (Negative) Urine Nitrite Neg (Negative) Urine Bilirubin Sm (Negative) Urine Ictotest Negative (Negative) Urine Urobilinogen 4.0 (<2.0) mg/dL Ur Leukocyte Esterase Tr (Negative) Urine WBC (Auto) 9.0 H (0.0-6.0) /HPF Urine RBC (Auto) 11.0 (0.0-6.0) /HPF U Epithel Cells (Auto) 38.0 H (0-13.0) /HPF Urine Mucus 3+ /HPF - Radiology Data Radiology results: report reviewed - Medical Decision Making Patient is a 20-year-old female presents emergency room complaints of nausea and vomiting that has been throughout her . She states that it has worsened in the last 3 days. She states that the vomiting has been frequent. She states that she is taking Zofran prescribed by her TRANSPORTATION DRIVER with mild relief. She is able to keep down calos jazzy but states that she cannot keep down food. She states that she is approximately 11 weeks . She states her last menstrual cycle was in June. She denies any fever, diarrhea, abdominal pain, pelvic pain, vaginal bleeding, urinary symptoms, abnormal vaginal discharge. She states that her TRANSPORTATION DRIVER is at [facility]. No past medical history. No allergies to medications. /P: 1/A: 0. Vitals are normal. No abnormality on physical exam is documented in chart. Labs are stable. UA shows evidence of many epithelial cells, likely due to contamination, patient is not having urinary symptoms, do not suspect UTI, will have patient follow-up with her TRANSPORTATION DRIVER for repeat urine sample. Patient given medications while in the emergency department. Patient was able to drink a bottle of water and a bottle of calos jazzy. She has no clinical signs of dehydration, no tachycardia, no hypotension, she has moist mucous membranes. Patient given prescription for gingerroot, Benadryl, Reglan. Advised patient Please take medication as prescribed. Increase your water intake. Eat a bland liquid diet until events or diet as tolerated. Follow-up with your TRANSPORTATION DRIVER. Return to emergency room for new or worsening symptoms friend Critical care attestation.: If time is entered above; I have spent that time in minutes in the direct care of this critically ill patient, excluding procedure time. ED Disposition Clinical Impression: Nausea/vomiting in Disposition: DC-01 TO HOME OR SELFCARE Is pt being admited?: No Does the pt Need Aspirin: No Condition: Stable Instructions: Hyperemesis Gravidarum Additional Instructions: Please take medication as prescribed. Increase your water intake. Eat a bland liquid diet until events or diet as tolerated. Follow-up with your TRANSPORTATION DRIVER. Return to emergency room for new or worsening symptoms friend Prescriptions: diphenhydrAMINE [Benadryl CAP] 25 mg PO Q6HR PRN #20 capsule PRN Reason: nausea and vomiting Calos Root [Calos] 250 mg PO QID PRN #40 capsule PRN Reason: Nausea And Vomiting Metoclopramide [Reglan] 10 mg PO Q8HR PRN #20 tab PRN Reason: nausea vomiting Referrals: [facility] [Provider Group] - 2-3 Days Time of Disposition: 14:07 Print Language: NEPALESE
[2020-09-11 13:29] LABS: Bilirubin,Urine SM (Negative); Blood,Urine NEG (Negative); Color,Urine Amber (Yellow); Mucus,Urine 3+ /HPF
[2020-09-11 13:44] LABS: Ictotest,Urine Negative (Negative)
[2020-09-11 13:50] LABS: Alanine Aminotransferase 14 units/L (7-56); Albumin 4.2 g/dL (3.9-5); Blood Urea Nitrogen 7 mg/dL (7-17); Calcium 9.7 mg/dL (8.4-10.2); Hemolysis Index 1
[2020-09-11 13:55] LABS: BUN/Creatinine Ratio 12
== END 2020-09-11 17:51 | disposition home or self-care (01) ==
LOC: ED 10:38
DX: O21.8 Other vomiting complicating pregnancy (principal); I10 Essential (primary) hypertension; Z3A.11 11 weeks gestation of pregnancy; Z79.899 Other long term (current) drug therapy
CPT/HCPCS: 36415; 80053; 81001; 84702; 85025; 87086

== ENCOUNTER 2021-01-21 21:24 | Outpatient (CLI) | payer OTHER ==
[2021-01-21 21:59] VITALS: BP 121/64
[2021-01-21] MEDS ORDERED: LACTATED RINGERS 1,000 ML IV ONE (22:24)
[2021-01-21 23:20] LABS: Bilirubin,Urine NEG (Negative); Blood,Urine LG (Negative); Color,Urine Yellow (Yellow); Mucus,Urine 1+ /HPF
[2021-01-21 23:22] LABS: RBC,Urine > 182.0 /HPF (0.0-6.0)
[2021-01-21 23:27] LABS: Amphetamine Screen,Urine PRESUMPTIVE NEGATIVE; Benzodiazepines Screen,Urine PRESUMPTIVE NEGATIVE; Cannabinoid Screen,Urine PRESUMPTIVE NEGATIVE; Cocaine Screen,Urine PRESUMPTIVE NEGATIVE; Methadone Screen,Urine PRESUMPTIVE NEGATIVE; Opiate Screen,Urine PRESUMPTIVE NEGATIVE
--- NOTE | 2021-01-22 04:13 | Ultrasound Report ---
ULTRASOUND BIOPHYSICAL PROFILE INDICATION / CLINICAL INFORMATION: well being. COMPARISON: None available. FINDINGS: BREATHING MOVEMENT = 2 GROSS BODY MOVEMENT = 2 TONE = 2 QUALITATIVE AMNIOTIC FLUID VOLUME = 2 TOTAL BIOPHYSICAL SCORE = 12/06 PRESENTATION: Cephalic. HEART RATE (beats per minute): 154 IMPRESSION: 1. Single live IUP in cephalic presentation. 2. biophysical profile = 12/06 Signer Name: Xavi Freeman MD Signed: 01/22/2021 4:09 AM Workstation Name: [id number]
--- NOTE | 2021-01-22 04:15 | Ultrasound Report ---
ULTRASOUND RENAL INDICATION / CLINICAL INFORMATION: hematuria and rule out kidney stones. COMPARISON: None available. FINDINGS: RIGHT KIDNEY: Size (in cm): 11.7 - Echogenicity: Normal. - Cortical Thickness: Normal. - Hydronephrosis: Minimal - Cyst or mass: Irregularly shaped fluid structure in the central left kidney likely reflects promine nt calyx. No cystic or solid mass identified. - Stones: None seen. LEFT KIDNEY: Size (in cm): 12.4 - Echogenicity: Normal. - Cortical Thickness: Normal. - Hydronephrosis: None. - Cyst or mass: No significant abnormality. - Stones: None seen. URINARY BLADDER: No significant abnormality. FREE FLUID: None. ADDITIONAL FINDINGS: None. IMPRESSION: 1. Minimal right hydronephrosis, of uncertain etiology. This may be related to maternal hydronephrosi s of . 2. Normal sonographic appearance of the left kidney. Signer Name: Xavi Freeman MD Signed: 01/22/2021 4:11 AM Workstation Name: [id number]
== END 2021-01-22 04:43 | disposition home or self-care (01) ==
LOC: TRG 21:24 → APU 21:27 → TRG 01-22 04:43
PROVIDERS: ATTEND Obstetrics & Gynecology
DX: O26.893 Other specified pregnancy related conditions, third trimester (principal); R10.9 Unspecified abdominal pain; R53.1 Weakness; H53.8 Other visual disturbances; R31.9 Hematuria, unspecified; Z3A.29 29 weeks gestation of pregnancy
CPT/HCPCS: 59025; 76770; 76819; 80307; 81001; 96360; J7120

== ENCOUNTER 2021-11-06 05:49 | Emergency (ER) | payer OTHER ==
[2021-11-06 08:31] LABS: Alanine Aminotransferase 23 units/L (7-56); Albumin 4.4 g/dL (3.9-5); Blood Urea Nitrogen 8 mg/dL (7-17); Calcium 9.5 mg/dL (8.4-10.2); Hemolysis Index 0
[2021-11-06 08:37] LABS: BUN/Creatinine Ratio 11
[2021-11-06 09:20] LABS: Basophils % (Auto) 0.4 % (0.0-1.8); Eosinophils # (Auto) 0.1 K/mm3 (0.0-0.4); Eosinophils % (Auto) 1.1 % (0.0-4.3); Hematocrit 35.5 % (30.3-42.9); Hemoglobin 11.8 gm/dl (10.1-14.3); Lymphocytes # (Auto) 2.2 K/mm3 (1.2-5.4); Lymphocytes % (Auto) 29.3 % (13.4-35.0); Mean Corpuscular HGB Conc 33 % (30-34); Mean Corpuscular Volume 77 fl (79-97); Monocytes # (Auto) 0.5 K/mm3 (0.0-0.8); Platelet Count 331 K/mm3 (140-440); Red Blood Count 4.59 M/mm3 (3.65-5.03); Red Cell Distribution Width 17.2 % (13.2-15.2)
[2021-11-06 11:06] LABS: Bilirubin,Urine NEG (Negative); Blood,Urine NEG (Negative); Color,Urine Yellow (Yellow); Urobilinogen,Urine < 2.0 mg/dL (<2.0)
[2021-11-06 11:11] LABS: Mucus,Urine 2+ /HPF
--- NOTE | 2021-11-06 11:59 | Ultrasound Report ---
ULTRASOUND PELVIS INDICATION / CLINICAL INFORMATION: low abdominal pain. TECHNIQUE: Transabdominal and Transvaginal. Duplex Color Doppler used: Yes. COMPARISON: No relevant prior imaging study available. FINDINGS: UTERUS: - Size (cm): 6.2 x 2.7 x 4.5 - Endometrial Complex (if present): No significant abnormality.. Thickness in cm (if measured) = 0.2 - Mass or cyst: None. - Additional findings: None. RIGHT ADNEXA: The right ovary is obscured by bowel gas. No significant ovarian cyst or mass. Normal c olor Doppler blood flow. LEFT ADNEXA: The left ovary is obscured by bowel gas. No significant ovarian cyst or mass. Normal col or Doppler blood flow. URINARY BLADDER: No significant abnormality. FREE FLUID: A small amount of free fluid along the cul-de-sac is likely physiologic. ADDITIONAL FINDINGS: None. IMPRESSION: 1. No significant sonographic abnormality. Signer Name: Pito Roach MD Signed: 11/06/2021 11:54 AM Workstation Name: [id number]
[2021-11-06] MEDS ORDERED: oxyCODONE /ACETAMINOPHEN 5-325MG TAB PO ONE (12:40)
[2021-11-06] MEDS ORDERED: ONDANSETRON 4 MG ODT TAB PO ONE (12:40)
--- NOTE | 2021-11-06 12:53 | Emergency Department Report ---
ED Abdominal Pain HPI - General Chief Complaint: Abdominal Pain Stated Complaint: ABD PAIN Time Seen by Provider: 11/06/21 10:22 Source: patient Mode of arrival: Ambulatory Limitations: No Limitations - History of Present Illness Initial Comments: 20-year-old female with no significant past medical history reports to the ER with complaints of lower abdominal pelvic pain intermittent for about 7 months after giving to her baby vaginally. Patient denies vaginal pain, vaginal discharge, no vaginal odor, no vaginal bleeding. Patient reports she has not seen her SAL[facility]ERSON [facility] since she is given and due to missing her [facility] appointment. Patient reports her pain is 9 out of 10. Denies nausea vomiting diarrhea. Patient does report ever since giving she has had hard time passing stool. No other acute symptoms reported. - Related Data Home Medications Medication Instructions Recorded Confirmed Last Taken Iron 1 tab PO DAILY 03/22/21 03/22/21 03/21/21 Previous Rx's Medication Instructions Recorded Last Taken Type Gummies 1 tab PO QDAY #90 08/07/20 03/21/21 Rx Ibuprofen [Motrin] 800 mg PO Q8HR PRN 7 Days #11/06/21 Unknown Rx tablet Allergies Allergy/AdvReac Type Severity Reaction Status Date / Time No Known Allergies Allergy Verified 02/08/17 17:02 ED Review of Systems ROS: Stated complaint: ABD PAIN Other details as noted in HPI Comment: All other systems reviewed and negative Gastrointestinal: abdominal pain (Lower abdominal pelvic area), constipation. denies: nausea, vomiting, diarrhea Genitourinary: denies: urgency, dysuria, frequency, hematuria, discharge ED Past Medical Hx - Past Medical History Previous Medical History?: Yes Hx Hypertension: Yes (PIH) Hx Congestive Heart Failure: No Hx Diabetes: No Hx Deep Vein Thrombosis: No Hx Renal Disease: No Hx Sickle Cell Disease: No Hx Seizures: No Hx Asthma: No Hx COPD: No Hx HIV: No Additional medical history: Eczema - Social History Smoking Status: Never Smoker - Medications Home Medications: Home Medications Medication Instructions Recorded Confirmed Last Taken Type Gummies 1 tab PO QDAY #90 08/07/20 03/22/21 03/21/21 Rx Iron 1 tab PO DAILY 03/22/21 03/22/21 03/21/21 History Ibuprofen [Motrin] 800 mg PO Q8HR PRN 7 Days #11/06/21 Unknown Rx tablet ED Physical Exam - General Limitations: No Limitations General appearance: alert, in no apparent distress - Head Head exam: Present: atraumatic, normocephalic - Eye Eye exam: Present: normal appearance - ENT ENT exam: Present: mucous membranes moist - Neck Neck exam: Present: normal inspection - Respiratory Respiratory exam: Present: normal lung sounds bilaterally. Absent: respiratory distress - Cardiovascular Cardiovascular Exam: Present: regular rate, normal rhythm. Absent: systolic murmur, diastolic murmur, rubs, gallop - GI/Abdominal GI/Abdominal exam: Present: soft, tenderness, normal bowel sounds, other (Subpubic pain is noted with tenderness.). Absent: distended, guarding, rebound, rigid - Expanded GI/Abdominal Exam Expanded GI/Abdominal exam: Absent: Quesada's sign, Rovsing's sign, tenderness at Mcburney's Point - Extremities Exam Extremities exam: Present: normal inspection - Back Exam Back exam: Present: normal inspection - Neurological Exam Neurological exam: Present: alert, oriented X3 - Psychiatric Psychiatric exam: Present: normal affect, normal mood - Skin Skin exam: Present: warm, dry, intact, normal color. Absent: rash ED Course Vital Signs 11/06/21 05:53 Temperature 99.1 F Pulse Rate 90 Respiratory 18 Rate Blood Pressure 127/67 O2 Sat by Pulse 99 Oximetry ED Medical Decision Making - Lab Data Result diagrams: 11/06/21 07:11 11/06/21 07:11 - Medical Decision Making 20-year-old female with no significant past medical history reports to the ER with complaints of lower abdominal pelvic pain intermittent for about 7 months after giving to her baby vaginally. Patient denies vaginal pain, vaginal discharge, no vaginal odor, no vaginal bleeding. Patient reports she has not seen her [facility] since she is given and due to missing her [facility] appointment. Patient reports her pain is 9 out of 10. Denies nausea vomiting diarrhea. Patient does report ever since giving she has had hard time passing stool. No other acute symptoms reported. On physical exam pelvic tenderness is noted in the suprapubic area. No acute abdominal signs noted in lower abdominal area. Ultrasound with no acute process noteddoes report bowel gas. No acute process noted and labs as labs unremarkable. No further imaging is needed. Patient informed to increase her oral hydration of water and consume foods high in fiber and to start taking Colace to help soften up her stools. Patient also informed to reschedule her appointment with her [employer] for her postop follow-up postdelivery. Patient agrees with plan of care and verbalized understanding. Critical care attestation.: If time is entered above; I have spent that time in minutes in the direct care of this critically ill patient, excluding procedure time. ED Disposition Clinical Impression: Pelvic pain, Lower abdominal pain Constipation Qualifiers: Constipation type: unspecified constipation type Qualified Code(s): K59.00 - Constipation, unspecified Disposition: HOME / SELF CARE / HOMELESS Is pt being admited?: No Condition: Stable Instructions: Abdominal Pain, Adult, Pelvic Pain, Female, Constipation, Adult, Abdominal Pain (ED) Prescriptions: Ibuprofen [Motrin] 800 mg PO Q8HR PRN 7 Days #21 tablet PRN Reason: Pain , Severe (7-10) Referrals: PRIMARY CAREMD [Primary Care Provider] - 3-5 Days ANN ERVIN MD [Staff Physician] - 3-5 Days KHOI ERVIN MD [Referring] - 3-5 Days Forms: Work/School Release Form(ED)
[2021-11-06 15:12] VITALS: BP 130/71
== END 2021-11-06 14:05 | disposition home or self-care (01) ==
LOC: ED 05:49
DX: R10.2 Pelvic and perineal pain (principal); R10.30 Lower abdominal pain, unspecified; K59.00 Constipation, unspecified; I10 Essential (primary) hypertension
CPT/HCPCS: 36415; 76830; 76856; 80053; 81001; 83690; 84703; 85025; 99284; J3490; Q0162